=== PATIENT | female | born 1955 | race Caucasian/White ===

== ENCOUNTER 2020-08-02 20:01 | Emergency (ER) | payer OTHER ==
[~2020-08-02] VITALS: Ht 167.6 cm; Wt 69.9 kg
[2020-08-02 20:58] LABS: HEMOGLOBIN 12.9 gm/dl (12.3-15.3); RED BLOOD COUNT 4.24 M/UL (4.00-5.10); WHITE BLOOD COUNT 4.3 K/UL (4.5-11.0)
[2020-08-02 21:17] LABS: BUN/CREATININE RATIO 23 (0-10)
[2020-08-02] MEDS ORDERED: ZOFRAN ODT 4 MG4 MG SL (23:18)
== END 2020-08-03 00:33 | disposition home or self-care (01) ==
LOC: ER1 20:01
PROVIDERS: Emergency Medicine
DX: Z23 Encounter for immunization (principal); U07.1 COVID-19; I10 Essential (primary) hypertension
CPT/HCPCS: 71045; 80053; 81001; 83690; 83735; 85025; 93005; 96374; 99284; J2405; M0245